=== PATIENT | male | born 1990 | race American Indian/Alaskan Native ===

== ENCOUNTER 2016-09-24 00:52 | Emergency (ER) | payer MEDICAID ==
[2016-09-24 09:03] VITALS: BP 151/92
[2016-09-24] MEDS ORDERED: ZITHROMAX PO ONE (09:56)
--- NOTE | 2016-09-24 09:56 | Emergency Department Report ---
HPI - General Chief Complaint: Upper Respiratory Infection Time Seen by Provider: 09/24/16 09:48 - HPI HPI: 26-year-old male who presents to ED complaining of yellow mucus productive cough intermittently 4 weeks. Patient states he is very getting over cold for the past 3 weeks. Patient states it was the cold resolved in about a week ago it started with coughing nonstop intermittently throughout the day. Patient describes a history of asthma on albuterol. Patient states coughing is causing him some discomfort. Patient states cough sometimes causes him to have some difficulty breathing. Patient denies fevers/chills/nausea/vomiting/abdominal pain/chest pain/ shortness of breath ED Past Medical Hx - Past Medical History Previous Medical History?: Yes Hx Diabetes: Yes Hx Asthma: Yes - Surgical History Past Surgical History?: No - Social History Smoking Status: Never Smoker Substance Use Type: None - Medications Home Medications: Home Medications Medication Instructions Recorded Confirmed Last Taken Type Insulin Aspart [Novolog 100 80 units SQ TID 01/03/14 01/03/14 Unknown History UNITS/ML] metFORMIN [Glucophage] 1,000 mg PO DAILY 01/03/14 01/03/14 Unknown History Acetamin/Codeine 120-12Mg/5 ml 5 ml PO TID PRN #80 ml 09/24/16 Unknown Rx [Tylenol/Codeine 120-12 mg/5 ml] Albuterol Sulfate [Ventolin HFA] 2 puff IH Q4H PRN #1 hfa.aer.ad 09/24/16 Unknown Rx Azithromycin [Zithromax] 250 mg PO QDAY #4 tablet 09/24/16 Unknown Rx Loratadine [Claritin] 10 mg PO DAILY #30 tablet 09/24/16 Unknown Rx predniSONE [Deltasone] 20 mg PO QDAY #5 tab 09/24/16 Unknown Rx ED Review of Systems ROS: Stated complaint: CHEST PAIN/COUGHING/THROAT PAIN Other details as noted in HPI Constitutional: denies: chills, fever Eyes: denies: eye pain, eye discharge, vision change ENT: congestion. denies: ear pain, throat pain, dental pain, hearing loss Respiratory: cough. denies: shortness of breath, wheezing Cardiovascular: denies: chest pain, palpitations Endocrine: no symptoms reported Gastrointestinal: denies: abdominal pain, nausea, vomiting, diarrhea, constipation Genitourinary: denies: urgency, dysuria, frequency, hematuria Musculoskeletal: denies: back pain, joint swelling, arthralgia, myalgia Skin: denies: rash, lesions, pruritus Neurological: denies: headache, weakness, paresthesias, confusion, abnormal gait Psychiatric: denies: anxiety, depression, suicidal thoughts Hematological/Lymphatic: denies: easy bleeding, easy bruising Physical Exam - Physical Exam Vital Signs: Vital Signs 09/24/16 09/24/16 09/24/16 01:39 06:33 09:02 Temperature 98.4 F 98.2 F Pulse Rate 90 93 H 88 Respiratory 18 18 18 Rate Blood Pressure 174/115 147/88 Blood Pressure 151/92 [Right] O2 Sat by Pulse 98 98 Oximetry Physical Exam: GENERAL: Alert and oriented x3, no apparent distress, Normal Gait, atraumatic. HEAD: Head is normocephalic and a-traumatic. EYES: Extra ocular muscles are intact. Pupils are equal, round, and reactive to light and accommodation. EARS: symetrical, atraumatic, non tender, ear canal clear and moderate cerumen, tympanic membrance non inflamed. gross auditory nml bilaterally. NOSE: Nose symetrical, Nontender,Nares appeared normal. MOUTH:Mouth is well hydrated and without lesions. Tonsils nonerythematous or swollen, Uvula midline, Tongue not elevated. Mucous membranes are moist. Posterior pharynx clear, no exudate or lesions. Patent airways. NECK: Supple. Non edematous, No carotid bruits. No lymphadenopathy or thyromegaly. LUNGS: Symetrical with respiration, No wheezing, no rales or crackles, CTAB. HEART: S1, S2 present, regular rate and rhythm without murmur, no rubs, no gallops. ABDOMEN: No organomegaly was noted,Positive bowel sounds, soft, and non- distended. . Nontender to palpation on all Quadrants, NO CVA tenderness. EXTREMITIES/MUSCULOSKELETAL: No cyanosis, clubbing, rash, lesions or edema. Full ROM bilaterally. UE/LE Pulses 2+ bilaterally. NEUROLOGIC: No focal Deficit, Cranial nerves II through XII are grossly intact. No loss of sensation, PSYCHIATRIC: Mood is congruent with affect, denies suicidal or homicidal ideations. SKIN: Warm and dry, No lesions, No ulceration or induration present. ED Course Vital Signs 09/24/16 09/24/16 09/24/16 01:39 06:33 09:02 Temperature 98.4 F 98.2 F Pulse Rate 90 93 H 88 Respiratory 18 18 18 Rate Blood Pressure 174/115 147/88 Blood Pressure 151/92 [Right] O2 Sat by Pulse 98 98 Oximetry ED Medical Decision Making - Radiology Data Radiology results: report reviewed, image reviewed Chest 2 views: History: Cough/difficulty breathing. Findings: Normal cardiomediastinal silhouette. Trachea is midline. No consolidation, pneumothorax or pleural effusion. Impression: No acute cardiopulmonary findings. Transcribed By: PTP Dictated By: ROYER SHORE MD Electronically Authenticated By: ROYER SHORE MD Signed Date/Time: 09/24/16 1031 - Medical Decision Making 26-year-old male presents with upper respiratory infection with bronchitis. ED course: Patient received 1 dose of azithromycin, Tylenol with codeine, Chest x-ray ordered. Chest x-ray shows no acute cardiopulmonary findings. Normal x-ray: see above Discussed with patient to rest, increase fluid intake, vitamin C daily. Discussed the patient to follow up with primary care physician. Discussed the patient is symptoms worsen or new symptoms arise to return to ED Vital signs are stable. Patient is in no acute unrestricted distress. Patient will be discharged home on home medications and follow up with primary care.. Critical care attestation.: If time is entered above; I have spent that time in minutes in the direct care of this critically ill patient, excluding procedure time. ED Disposition Clinical Impression: Bronchitis URI (upper respiratory infection) Qualifiers: URI type: unspecified URI Qualified Code(s): J06.9 - Acute upper respiratory infection, unspecified Disposition: DISCHARGED TO HOME OR SELFCARE Is pt being admited?: No Does the pt Need Aspirin: No Condition: Stable Instructions: Chronic Bronchitis (ED), Upper Respiratory Infection (ED) Prescriptions: Acetamin/Codeine 120-12Mg/5 ml [Tylenol/Codeine 120-12 mg/5 ml] 5 ml PO TID PRN #80 ml PRN Reason: Pain Albuterol Sulfate [Ventolin HFA] 2 puff IH Q4H PRN #1 hfa.aer.ad PRN Reason: Shortness Of Breath Azithromycin [Zithromax] 250 mg PO QDAY #4 tablet Loratadine [Claritin] 10 mg PO DAILY #30 tablet predniSONE [Deltasone] 20 mg PO QDAY #5 tab Referrals: MISAEL VILLAGRAN MD [Primary Care Provider] - 3-5 Days HAYDER RUTLEDGE MD [Referring] - 3-5 Days AQUILES OCAMPO MD [Referring] - 3-5 Days Forms: Work/School Release Form(ED) Time of Disposition: 10:55
[2016-09-24] MEDS: ROBITUSSIN AC PO ONE (10:16)
--- NOTE | 2016-09-24 10:38 | XRay Report ---
Chest 2 views: History: Cough/difficulty breathing. Findings: Normal cardiomediastinal silhouette. Trachea is midline. No consolidation, pneumothorax or pleural effusion. Impression: No acute cardiopulmonary findings.
== END 2016-09-24 11:10 | disposition home or self-care (01) ==
LOC: ED 00:52
DX: J40 Bronchitis, not specified as acute or chronic (principal); J06.9 Acute upper respiratory infection, unspecified
CPT/HCPCS: 71020; 99283